=== PATIENT | male | born 1990 | race American Indian/Alaskan Native ===

== ENCOUNTER 2020-02-04 18:21 | Emergency (ER) | payer SELFPAY ==
--- NOTE | 2020-02-04 19:10 | XRay Report ---
CHEST 2 VIEWS, 02/04/2020 7:00 PM INDICATION: Chest pain COMPARISON: None FINDINGS: Support devices: None Heart: The heart is normal in size. Lungs/pleura: The lungs are clear of focal airspace disease or significant pleural effusion. Additional findings: No significant acute abnormality. IMPRESSION: 1. No evidence of acute cardiopulmonary process. Signer Name: Misty Saldaña MD Signed: 02/04/2020 7:05 PM Workstation Name: [id number]
[2020-02-04] MEDS ORDERED: NALOXONE 2 MG/2 ML INJ ONE (19:17)
[2020-02-04] MEDS ORDERED: FAMOTIDINE 20 MG/2 ML INJ IV ONE (20:38)
[2020-02-04] MEDS ORDERED: SODIUM CHLORIDE 0.9% 1000 ML 1,000 ML IV ONE (20:38)
--- NOTE | 2020-02-04 20:49 | Emergency Department Report ---
HPI - General Chief Complaint: Arrhythmia/Palpitations Time Seen by Provider: 02/04/20 20:12 - HPI HPI: Room 6 The patient is a 29-year-old male present with chief complaint of burning epigastric pain. Patient states for the past 4 days he has had burning epigastric pain. The patient states for the first 2 days pain will come on after meals however for the past 2 days it comes on even without eating. Patient states the pain rises from his mid epigastric region into his chest. Patient denies nausea vomiting or diarrhea. Patient denies fever or known sick contacts. Patient denies any recent flights or long car trips. Patient denies pleurisy. Patient went to [facility] where he was found to be tachycardic on his EKG and sent to the ED for further evaluation ED Past Medical Hx - Past Medical History Previous Medical History?: Yes Additional medical history: sinusitis - Surgical History Past Surgical History?: No - Family History Family history: no significant - Social History Smoking Status: Never Smoker Substance Use Type: None (Denies illicit drug use) - Medications Home Medications: Home Medications Medication Instructions Recorded Confirmed Last Taken Type Famotidine [Pepcid] 20 mg PO BID #60 tablet 02/04/20 Unknown Rx HYDROcodone/APAP 5-325 [[place] 1 each PO Q6HR PRN #10 tablet 02/04/20 Unknown Rx 5/325] ED Review of Systems ROS: Stated complaint: MEDICAL CLEARANCE Other details as noted in HPI Constitutional: no symptoms reported. denies: fever Eyes: denies: eye pain ENT: denies: throat pain Respiratory: no symptoms reported Cardiovascular: chest pain Endocrine: no symptoms reported Gastrointestinal: abdominal pain. denies: nausea, vomiting, diarrhea Genitourinary: denies: dysuria Musculoskeletal: denies: back pain Neurological: denies: headache Physical Exam - Physical Exam Vital Signs: Vital Signs 02/04/20 18:26 Temperature 98.5 F Pulse Rate 118 H Respiratory 18 Rate Blood Pressure 132/92 O2 Sat by Pulse 100 Oximetry Vital Signs 02/04/20 02/04/20 18:26 22:48 Temperature 98.5 F Pulse Rate 118 H 102 H Respiratory 18 16 Rate Blood Pressure 132/92 Blood Pressure 158/80 [Left] O2 Sat by Pulse 100 100 Oximetry Physical Exam: GENERAL: The patient is well-developed well-nourished male sitting on stretcher not appearing to be in acute distress. [] HEENT: Normocephalic. Atraumatic. Extraocular motions are intact. Patient has moist mucous membranes. NECK: Supple. Trachea midline CHEST/LUNGS: Clear to auscultation. There is no respiratory distress noted. HEART/CARDIOVASCULAR: Regular. There is no tachycardia. There is no gallop rub or murmur. ABDOMEN: Abdomen is soft, with mild discomfort to palpation in the midepigastric region. Patient has normal bowel sounds. There is no abdominal distention. SKIN: There is no rash. There is no edema. There is no diaphoresis. NEURO: The patient is awake, alert, and oriented. The patient is cooperative. The patient has normal speech MUSCULOSKELETAL: There is no evidence of acute injury. ED Course Vital Signs 02/04/20 18:26 Temperature 98.5 F Pulse Rate 118 H Respiratory 18 Rate Blood Pressure 132/92 O2 Sat by Pulse 100 Oximetry ED Medical Decision Making - Lab Data Result diagrams: 02/04/20 20:42 02/04/20 20:42 Laboratory Tests 02/04/20 02/04/20 02/04/20 20:42 20:42 20:42 WBC 5.2 RBC 5.20 H Hgb 15.6 H Hct 46.8 H MCV 90 MCH 30 MCHC 33 RDW 13.4 Plt Count 281 Lymph % (Auto) 17.0 Braxton % (Auto) 6.4 Eos % (Auto) 0.1 Baso % (Auto) 0.9 Lymph # 0.9 L Braxton # 0.3 Eos # 0.0 Baso # 0.0 Seg Neutrophils % 75.6 H Seg Neutrophils # 4.0 D-Dimer > 72123 H Sodium 137 Potassium 3.7 Chloride 101.8 Carbon Dioxide 19 L Anion Gap 20 BUN 9 Creatinine 0.9 Estimated GFR > 60 BUN/Creatinine Ratio 10 Glucose 126 H Calcium 8.9 Total Bilirubin 0.60 AST 28 ALT 44 Alkaline Phosphatase 76 Total Creatine Kinase 119 CK-MB (CK-2) < 1.0 CK-MB (CK-2) Rel Index 0.8 Troponin T < 0.010 Total Protein 8.3 H Albumin 4.4 Albumin/Globulin Ratio 1.1 Lipase 10 L - EKG Data -: EKG Interpreted by Vt EKG shows normal: sinus rhythm Rate: tachycardia (109 bpm) - EKG Data When compared to previous EKG there are: previous EKG unavailable Interpretation: other (No ischemic changes seen) - Radiology Data Radiology results: report reviewed (Chest x-ray, CT chest), image reviewed (Chest x-ray, CT chest) interpreted by me: Chest x-ray-no focal infiltrates, no pneumothorax Findings [address] [address] XRay Report Signed Patient: SHEMAR DILLON MR#: [id number] : 1990 Acct:[id number] Age/Sex: 29 / M ADM Date: 02/04/20 Loc: ED Attending Dr: Ordering Physician: TANIYA SANDERS MD Date of Service: 02/04/20 Procedure(s): XR chest routine 2V Accession Number(s): [id number] cc: ED MD TOMMY Fluoro Time In Minutes: CHEST 2 VIEWS, 02/04/2020 7:00 PM INDICATION: Chest pain COMPARISON: None FINDINGS: Support devices: None Heart: The heart is normal in size. Lungs/pleura: The lungs are clear of focal airspace disease or significant pleural effusion. Additional findings: No significant acute abnormality. IMPRESSION: 1. No evidence of acute cardiopulmonary process. Signer Name: Misty Saldaña MD Signed: 02/04/2020 7:05 PM Workstation Name: [id number] Transcribed By: EB Dictated By: Misty Saldaña MD Electronically Authenticated By: Misty Saldaña MD Signed Date/Time: 02/04/201904 DD/ 04 TD/TT: Findings [address] [address] Cat Scan Report Signed Patient: SHEMAR DILLON MR#: [id number] : 1990 Acct:[id number] Age/Sex: 29 / M ADM Date: 02/04/20 Loc: ED Attending Dr: Ordering Physician: ROSA PITTS MD Date of Service: 02/04/20 Procedure(s): CT angio chest Accession Number(s): [id number] cc: ROSA PITTS MD CTA CHEST WITH IV CONTRAST INDICATION: Chest pain. Tachycardia. TECHNIQUE: Axial CT images were obtained through the chest after injection of IV contrast. Coronal oblique 2-D reconstruction images were produced. 3 plane MIP reconstruction images were produced at an independent workstation. All CTs at this facility utilize dose reduction techniques including automated exposure control, iterative reconstruction and weight based dosing when appropriate to reduce patient radiation dose to as low as reasonable achievable. COMPARISON: None. FINDINGS: Evaluation of the pulmonary arteries demonstrates no evidence of central or segmental filling defects to suggest pulmonary embolism. The heart is normal in size. The thoracic aorta appears normal in caliber. Evaluation of the lung parenchyma demonstrates no focal airspace disease or pleural effusion. Limited imaging of the upper abdomen demonstrates diffuse wall thickening of the proximal and mid stomach.. Evaluation of bony structures demonstrates no evidence of acute bony abnormality. Evaluation of soft tissue structures demonstrates no evidence of focal soft tissue abnormality. IMPRESSION: 1. No evidence of pulmonary embolism or acute parenchymal process. 2. Nonspecific wall thickening of the proximal and mid stomach. Suggest correlation with patient's clinical presentation and possible endoscopy. Signer Name: Misty Saldaña MD Signed: 02/04/2020 10:05 PM Workstation Name: [id number] Transcribed By: EB Dictated By: Misty Saldaña MD Electronically Authenticated By: Misty Saldaña MD Signed Date/Time: 02/04/202204 DD/ 58 TD/TT: - Differential Diagnosis GERD, pancreatitis, peptic ulcer disease, PE, ACS Critical care attestation.: If time is entered above; I have spent that time in minutes in the direct care of this critically ill patient, excluding procedure time. ED Disposition Clinical Impression: Abdominal pain, Gastritis Disposition: DC-01 TO HOME OR SELFCARE Is pt being admited?: No Does the pt Need Aspirin: No Condition: Stable Instructions: Acute Abdominal Pain (ED) Additional Instructions: Return to the emergency department should you develop worsening symptoms, inability to tolerate food or liquids, high fever or any other concerns Prescriptions: HYDROcodone/APAP 5-325 [[place] 5/325] 1 each PO Q6HR PRN #10 tablet PRN Reason: Pain Famotidine [Pepcid] 20 mg PO BID #60 tablet Referrals: DI BENNETT MD [Staff Physician] - 3-5 Days (Dr Bennett is a primary physician. Please follow-up with him for further evaluation) PEDRO WHITT MD [Staff Physician] - [facility] (Dr. Whitt is a land clearer. Please follow-up with him for further evaluation) Time of Disposition: 23:14
[2020-02-04 21:06] LABS: Basophils % (Auto) 0.9 % (0.0-1.8); Eosinophils % (Auto) 0.1 % (0.0-4.3); Hematocrit 46.8 % (35.5-45.6); Hemoglobin 15.6 gm/dl (11.8-15.2); Lymphocytes # (Auto) 0.9 K/mm3 (1.2-5.4); Mean Corpuscular HGB Conc 33 % (32-34); Mean Corpuscular Volume 90 fl (84-94); Monocytes # (Auto) 0.3 K/mm3 (0.0-0.8); Monocytes % (Auto) 6.4 % (0.0-7.3); Platelet Count 281 K/mm3 (140-440); Red Cell Distribution Width 13.4 % (13.2-15.2)
[2020-02-04 21:07] LABS: Alanine Aminotransferase 44 units/L (7-56); Albumin 4.4 g/dL (3.9-5); BUN/Creatinine Ratio 10; Blood Urea Nitrogen 9 mg/dL (9-20); Calcium 8.9 mg/dL (8.4-10.2); Hemolysis Index 13
[2020-02-04 21:22] LABS: Creatine Kinase MB < 1.0 ng/mL (0.0-4.0)
--- NOTE | 2020-02-04 22:09 | Cat Scan Report ---
CTA CHEST WITH IV CONTRAST INDICATION: Chest pain. Tachycardia. TECHNIQUE: Axial CT images were obtained through the chest after injection of IV contrast. Coronal oblique 2-D reconstruction images were produced. 3 plane MIP reconstruction images were produced at an [employer] workstation. All CTs at this facility utilize dose reduction techniques including automated expos ure control, iterative reconstruction and weight based dosing when appropriate to reduce patient radi ation dose to as low as reasonable achievable. COMPARISON: None. FINDINGS: Evaluation of the pulmonary arteries demonstrates no evidence of central or segmental filling defects to suggest pulmonary embolism. The heart is normal in size. The thoracic aorta appears normal in yoli iber. Evaluation of the lung parenchyma demonstrates no focal airspace disease or pleural effusion. Limited imaging of the upper abdomen demonstrates diffuse wall thickening of the proximal and mid sto mach.. Evaluation of bony structures demonstrates no evidence of acute bony abnormality. Evaluation of soft tissue structures demonstrates no evidence of focal soft tissue abnormality. IMPRESSION: 1. No evidence of pulmonary embolism or acute parenchymal process. 2. Nonspecific wall thickening of the proximal and mid stomach. Suggest correlation with patient's c linical presentation and possible endoscopy. Signer Name: Misty Saldaña MD Signed: 02/04/2020 10:05 PM Workstation Name: [id number]
[2020-02-04 22:49] VITALS: BP 158/80
== END 2020-02-05 00:06 | disposition home or self-care (01) ==
LOC: ED 18:21
DX: K29.70 Gastritis, unspecified, without bleeding (principal); R10.9 Unspecified abdominal pain; Z79.899 Other long term (current) drug therapy; Z01.818 Encounter for other preprocedural examination
CPT/HCPCS: 36415; 71046; 71275; 80053; 82550; 82553; 83690; 84484; 85025; 85379; 93005; 93010; 96374; 99285; J7030; Q9967; J2310